=== PATIENT | male | born 1985 | race Caucasian/White ===

== ENCOUNTER 2022-07-24 17:51 | Emergency (ER) | payer SELFPAY ==
[~2022-07-24] VITALS: Ht 167.6 cm; Wt 72.6 kg
[2022-07-24 18:20] VITALS: BP 123/70
[2022-07-24] MEDS ORDERED: KETO120S5 TP (19:11)
[2022-07-24] MEDS ORDERED: KEN.1C TP (19:11)
--- NOTE | 2022-07-24 20:04 | NUR ---
Patient discharged with v/s stable. Written and verbal after care instructions given and explained. Patient alert, oriented and verbalized understanding of instructions. Ambulatory with steady gait. All questions addressed prior to discharge. ID band removed. Patient advised to follow up with PMD. Rx of kenalog and ketoconazole shampoo given. Opportunity to ask questions provided and answered. pt left without D/C orders
--- NOTE | 2022-07-24 20:05 | NUR ---
pt left without D/C orders.
== END 2022-07-24 20:04 | disposition home or self-care (01) ==
LOC: MED 17:51
DX: L21.9 Seborrheic dermatitis, unspecified (principal); Z79.899 Other long term (current) drug therapy
CPT/HCPCS: 99283